=== PATIENT | female | born 1950 | race Hispanic/Latino ===

== ENCOUNTER 2017-09-20 07:34 | Outpatient (CLI) | payer OTHER ==
[2017-09-21] MEDS ORDERED: KETO10TA34 PO (09:54)
== END 2017-09-20 07:38 | disposition short-term general hospital (02) ==
LOC: AMB 07:34
DX: R07.89 Other chest pain (principal); V49.49XA Driver injured in collision with other motor vehicles in traffic accident, initial encounter; Y92.414 Local residential or business street as the place of occurrence of the external cause
CPT/HCPCS: A0425; A0427

== ENCOUNTER 2017-09-20 07:48 | Observation (INO) | payer OTHER ==
[~2017-09-20] VITALS: Ht 162.6 cm; Wt 75.9 kg
[2017-09-20] VITALS (26 sets, daily range): BP systolic 122–158; BP diastolic 50–74; TEMP 97.6–98.7; Ht 162.6 cm; Wt 75.9 kg
[2017-09-20 10:28] LABS: PARTIAL THROMBOPLASTIN TIME 25.6 SECONDS (24.5-33.6)
[2017-09-20 10:39] LABS: PLATELET COUNT 229 K/uL (152-353)
[2017-09-20 10:54] LABS: POTASSIUM 3.8 mmol/L (3.6-5.2); SODIUM 137 mmol/L (136-145)
--- NOTE | 2017-09-20 15:47 | NUR ---
PT TO ICU BED 3. PT ALERT AND ORIENTED. REDNESS NOTED TO CHEST. ASSESSMENT COMPLETE. ORIENTED PT TO ROOM AND CONTROLS.
[2017-09-21] VITALS (10 sets, daily range): BP systolic 123–141; BP diastolic 50–64; TEMP 97.9
--- NOTE | 2017-09-21 01:16 | NUR ---
PT RESTING IN BED WITH EYES CLOSED, NO S/S OF PAIN OR DISTRESS NOTED, IV INTACT TO L AC WITH NS INFUSING AT 75ML/HR, RESP RATE NONLABORED, O2 IN USE, WILL CONTINUE TO MONITOR CLOSELY, RAILS UP, CALL LIGHT IN REACH, BED IN LOW POSITION.
--- NOTE | 2017-09-21 01:18 | NUR ---
09/20/17 AT 2250RESTING WITH EYES CLOSED, NO S/S OF PAIN OR DISTRESS NOTED, IV INTACT TO L AC WITH NO PROBLEMS NOTED TO SITE AND NS INFUSING PER ORDER, RESP RATE NONLABORED, O2 AT 2LPM VIA NC, WILL MONITOR, RAILS UP, CALL LIGHT IN REACH, BED IN LOW POSITION.
--- NOTE | 2017-09-21 04:18 | NUR ---
0312PT AWAKE AND ORIENTED, NO S/S OF PAIN OR DISTRESS NOTED, IV INTACT TO L AC WITH NS INFUSING AT 75ML/HR, RESP RATE NONLABORED, O2 IN USE. PT ASSISTED TO AND FROM BSC. NOW C/O PAIN OVER FX STERNUM THAT IS CONSTANT AND A "7" ON SCALE. STATES PAIN INCREASES WITH MOVEMENT. 0319 ADX MORPHINE 2MG IVP PRN FOR PAIN. WILL MONITOR CLOSELY, RAILS UP, CALL LIGHT IN REACH, BED IN LOW POSITION. PT REMAINS IN POSITION OF COMFORT.
--- NOTE | 2017-09-21 04:21 | NUR ---
0400PT RESTING IN BED WITH EYES CLOSED AND LIGHT SNORING NOTED, NO S/S OF PAIN OR DISTRESS NOTED, IV INTACT, RESP RATE NONLABORED, WILL MONITOR CLOSELY, RAILS UP, BED IN LOW POSITION.
[2017-09-21 06:18] LABS: PLATELET COUNT 186 K/uL (152-353)
--- NOTE | 2017-09-21 06:39 | NUR ---
0625RESTING WITH EYES CLOSED, NO S/S OF PAIN OR DISTRESS NOTED, IV INTACT TO L AC WITH NO PROBLEMS NOTED TO SITE AND NS INFUSING AT 75ML/HR, RESP RATE NONLABORED, ON ROOM AIR WITH SAT OF 95%, VITALS BEING MONITORED, WILL MONITOR CLOSELY, RAILS UP, CALL LIGHT IN REACH, BED IN LOW POSITION.
[2017-09-21 06:46] LABS: POTASSIUM 3.9 mmol/L (3.6-5.2); SODIUM 137 mmol/L (136-145)
--- NOTE | 2017-09-21 07:00 | NUR ---
PATIENT TO XRAY
--- NOTE | 2017-09-21 07:55 | NUR ---
ECHOCARDIOGRAM BEING PREFORMED AT BEDSIDE BY CASEY CROWLEY RT
--- NOTE | 2017-09-21 08:10 | NUR ---
PATIENT COMPLAINS OF SORENESS IN CHEST. PATIENT DRIFTING ON AND OFF TO SLEEP.
--- NOTE | 2017-09-21 09:46 | NUR ---
0948 DR MIRZA'S OFFCIE NOTIFIED CONCERNING OUT PT REFERRAL. PER DR MIRZA'S OFFICE PT HAS TO NOTIFY THEIR OFFICE AND PROVIDE INFORM REGAURDING INS AND THEN APPT WILL BE MADE AT THAT TIME. ALL INFORMATION GIVEN TO PT AND PT'S . BOTH VERBALIZED UNDERSTANIDNG.
[2017-09-21] MEDS ORDERED: KETO10TA34 PO (09:54)
== END 2017-09-21 11:07 | disposition home or self-care (01) ==
LOC: ED 07:48 → MED/SURG 10:15 → ICU 10:15
PROVIDERS: ADMIT Emergency Medicine
DX: S22.20XA Unspecified fracture of sternum, initial encounter for closed fracture (principal); V43.52XA Car driver injured in collision with other type car in traffic accident, initial encounter; Y93.89 Activity, other specified; Y92.89 Other specified places as the place of occurrence of the external cause; Y99.8 Other external cause status; R01.1 Cardiac murmur, unspecified
CPT/HCPCS: 36415; 80053; 80307; 81000; 82550; 82553; 83615; 83735; 84484; 85027; 85610; 85730; 93005; 93306; 94760; 99220; 99285; G0378; J2175; J2270; J2360; Q9963

== ENCOUNTER 2019-09-20 11:31 | Outpatient (CLI) | payer OTHER ==
[~2019-09-20 11:31] MED LIST: KETO10TA34 PO
[2019-09-20 12:21] LABS: PLATELET COUNT 196 K/uL (152-353)
[2019-09-20 13:15] LABS: POTASSIUM 3.6 mmol/L (3.6-5.2)
== END 2019-09-20 20:49 | disposition home or self-care (01) ==
LOC: LABW 11:31
PROVIDERS: Internal Medicine
DX: E78.2 Mixed hyperlipidemia (principal); M62.81 Muscle weakness (generalized); E03.0 Congenital hypothyroidism with diffuse goiter; E55.9 Vitamin D deficiency, unspecified; M25.50 Pain in unspecified joint; R10.33 Periumbilical pain; R10.30 Lower abdominal pain, unspecified
CPT/HCPCS: 36415; 80048; 80061; 80076; 81000; 82150; 82306; 82550; 83690; 84439; 84443; 85027; 85651; 86038; 86304; 86430

== ENCOUNTER 2021-12-19 14:20 | Inpatient (IN) | payer OTHER ==
[~2021-12-19] VITALS: Ht 162.6 cm; Wt 76.9 kg
[2021-12-19 15:25] VITALS: BP 135/60; TEMP 98.5; Ht 162.6 cm; Wt 76.9 kg
[2021-12-19 20:00] VITALS: BP 167/54; TEMP 99.4
[2021-12-20 00:04] VITALS: TEMP 98.6
[2021-12-20] MEDS ORDERED: TRAZODONE HYDR100 MG PO (07:47)
[2021-12-20] MEDS ORDERED: AMLODIPINE BESYLATE PO (07:48)
[2021-12-20] MEDS ORDERED: SERTRALINE HYD100 MG PO (07:49)
[2021-12-20] MEDS ORDERED: EUTHYROX88 MCG PO (07:49)
[2021-12-20] MEDS ORDERED: OXYC5TAB53 PO (07:50)
[2021-12-20] MEDS ORDERED: ASPIR-LOW81 MG PO (07:53)
[2021-12-20] MEDS ORDERED: CELE200C2 PO (07:54)
[2021-12-20] MEDS ORDERED: DOCU100C10 PO (07:55)
[2021-12-20] MEDS ORDERED: FERROUS SULF325 MG PO (07:56)
[2021-12-20] MEDS ORDERED: MIRALAX17 GM PO (07:57)
[2021-12-20] MEDS ORDERED: CYCL10TA35 PO (07:57)
[2021-12-20] MEDS ORDERED: GABA300C2 PO (07:58)
[2021-12-20] MEDS ORDERED: PROM25TA52 PO (07:58)
[2021-12-20 08:00] VITALS: BP 133/45; TEMP 98.1
[2021-12-20 20:00] VITALS: BP 138/53; TEMP 98.8
[2021-12-21 08:00] VITALS: BP 120/46; TEMP 97.4
[2021-12-21 20:00] VITALS: BP 161/46; TEMP 98.5
[2021-12-22 08:00] VITALS: BP 144/45; TEMP 97.5
[2021-12-22 20:00] VITALS: BP 143/44; TEMP 98.2
[2021-12-23 08:00] VITALS: BP 132/49; TEMP 98.4
[2021-12-23 20:14] VITALS: BP 159/34; TEMP 98.6
[2021-12-24 08:00] VITALS: BP 137/44; TEMP 97.6
[2021-12-24 20:00] VITALS: BP 144/42; TEMP 98.1
== END 2021-12-25 07:26 | disposition home or self-care (01) | DRG 561 ==
LOC: MED/SURG 14:20
PROVIDERS: ADMIT Internal Medicine Endocrinology, Diabetes & Metabolism; ATTEND Internal Medicine Endocrinology, Diabetes & Metabolism
DX: Z47.1 Aftercare following joint replacement surgery (principal); Z96.651 Presence of right artificial knee joint; M17.11 Unilateral primary osteoarthritis, right knee; M17.12 Unilateral primary osteoarthritis, left knee; M62.81 Muscle weakness (generalized); Z74.1 Need for assistance with personal care; D64.9 Anemia, unspecified; I10 Essential (primary) hypertension; E03.9 Hypothyroidism, unspecified; F32.9 Major depressive disorder, single episode, unspecified
CPT/HCPCS: 87081

== ENCOUNTER 2022-01-20 11:38 | Outpatient (CLI) | payer OTHER ==
[~2022-01-20 11:38] MED LIST changes: +AMLODIPINE BESYLATE PO; +ASPIR-LOW81 MG PO; +CELE200C2 PO; +CYCL10TA35 PO; +DOCU100C10 PO; +EUTHYROX88 MCG PO; +FERROUS SULF325 MG PO; +GABA300C2 PO; +MIRALAX17 GM PO; +OXYC5TAB53 PO; +PROM25TA52 PO; +SERTRALINE HYD100 MG PO; +TRAZODONE HYDR100 MG PO
== END 2022-01-20 19:03 | disposition home or self-care (01) ==
LOC: US 11:38
PROVIDERS: ATTEND Nurse Practitioner
DX: M79.661 Pain in right lower leg (principal); R22.41 Localized swelling, mass and lump, right lower limb

== ENCOUNTER 2022-07-03 10:09 | Outpatient (CLI) | payer OTHER | END 2022-07-03 19:30 | disposition home or self-care (01) | LOC: RAD 10:09 | PROVIDERS: ATTEND Internal Medicine | DX: N64.59 Other signs and symptoms in breast (principal); Z78.0 Asymptomatic menopausal state | CPT/HCPCS: G0279 ==

== ENCOUNTER 2023-10-25 12:06 | Outpatient (CLI) | payer OTHER | END 2023-10-25 19:21 | disposition home or self-care (01) | LOC: RAD 12:06 | PROVIDERS: ATTEND Nurse Practitioner Family | DX: R05.9 Cough, unspecified (principal) ==